=== PATIENT | female | born 1995 | race Caucasian/White ===

== ENCOUNTER → 2017-05-20 | Outpatient (CLI) | payer BC ==
--- NOTE | ~2017-05-20 | US128 ---
[id number] [address] [address] [id number] P MR#: [id number] Acc #: [id number] NAME: ROBERT GUTIERREZ : 1995 SEX: F STUDY DATE/TIME: 05/20/2017 14:14 UNIT: [facility] ROOM: STUDY DESCRIPTION: Thyroid Attending Physician: Iggy Lezama M.D. Ordering Physician: Iggy Lezama M.D. Primary Care Physician: Iggy Lezama M.D. MEDICAL IMAGING REPORT This report is preliminary unless electronic signature is present. EXAM Thyroid ultrasound INDICATIONS Thyromegaly for 6 weeks. TECHNIQUE Anders-scale and color Doppler sonographic images were obtained through the thyroid gland. Right lobe measured 1.5 x 1.5 x 4.3 cm left lobe measured 1.2 x 1.7 x 4.3 cm. The isthmus measures 2 mm in thickness. Thyroid gland is homogeneous in echotexture. No focal lesions are seen. IMPRESSION Normal thyroid ultrasound Dictated by... Libby Bush M.D. THIS IS AN ELECTRONICALLY VERIFIED REPORT Libby Bush M.D. at 05/23/2017 1:10 PM AFF/rnr TD: 05/21/2017 22:06 JOB #: [id number] MEDICAL IMAGING REPORT Page 1 of 1
== END | disposition home or self-care (01) ==
LOC: SGUS 07:31
DX: E01.0 Iodine-deficiency related diffuse (endemic) goiter (principal)
CPT/HCPCS: 76536